=== PATIENT | male | born 1970 | race Hispanic/Latino ===

== ENCOUNTER → 2025-06-29 | Day surgery (SDC) | payer MEDICARE ==
[~2025-06-29] MED LIST: ALLOPURINOL100 MG PO; AMLODIPINE BESY10 MG PO; ATORVASTATIN CA20 MG PO; FENTANYL CITRATE/PF 100MCG/2 ML INJ ONE; HUMIRA(CF)40 MG/0.1 IJ; LIDOCAINE HCL 2% LOCAL INJ 5 ML SDV VIAL INJ ONE; LOSARTAN POTAS100 MG PO; MIDAZOLAM HCL 2 MG/2 ML VIAL ONE; MOUNJARO7.5 MG/0.5; PANTOPRAZOLE SO40 MG PO; PROBIOTIC & AC1 EACH PO; PROPOFOL IV EMULSION 0 ML IV ONE; PROPOFOL IV EMULSION 10 MG/ML 20 ML VIAL ONE; SERTRALINE HCL100 MG PO; SEVOFLURANE INHAL SOLN 250 ML PEN BTL ONE; VENTOLIN HFA18 GM INH
[2025-06-29] MEDS: LACTATED RINGER'S 1,000 ML ONE (11:59)
[2025-06-29] MEDS: LEVOFLOXACIN 500MG/D5W 100ML 100 ML IV ONE (12:00)
[2025-06-29 15:05] VITALS: TEMP 97.7
[2025-06-29] MEDS: HYDRALAZINE HCL 20 MG/ML VIAL ONE (15:25)
[2025-06-29 16:15] VITALS: BP 148/88; PULSE 74; RESP 16; O2SAT 97
== END | disposition home or self-care (01) ==
LOC: OR 10:47
PROVIDERS: ATTEND Urology
DX: N20.0 Calculus of kidney (principal); N13.30 Unspecified hydronephrosis; N39.0 Urinary tract infection, site not specified; E66.812 Obesity, class 2; Z68.39 Body mass index [BMI] 39.0-39.9, adult; I10 Essential (primary) hypertension; E78.5 Hyperlipidemia, unspecified; K21.9 Gastro-esophageal reflux disease without esophagitis; L40.9 Psoriasis, unspecified; F32.A Depression, unspecified; Z88.0 Allergy status to penicillin; Z88.5 Allergy status to narcotic agent; Z79.620 Long term (current) use of immunosuppressive biologic; Z79.85 Long-term (current) use of injectable non-insulin antidiabetic drugs; Z79.899 Other long term (current) drug therapy; Z01.810 Encounter for preprocedural cardiovascular examination
CPT/HCPCS: 50590; 52332; 87086; 93005; C1758; C2617; J0360; J1956; J2003; J2250; J2704; J3010; J7121